=== PATIENT | female | born 1965 | race Caucasian/White ===

== ENCOUNTER → 2020-12-21 | Outpatient (CLI) | payer BC ==
[2020-12-21 12:00] LABS: GLUCOSE,CSF 54 mg/dL (50-80); TOTAL PROTEIN,CSF 43 mg/dL (20-45)
[2020-12-21 12:22] LABS: WBC (AUTOMATED 1 10^3 (0-5); WBC (AUTOMATED 2 10^3 (0-5)
[2020-12-23 15:10] LABS: CSF IGG INDEX 0.7 (0.0-0.7); IMMUNOGLOBULIN G, QN, SERUM 740 mg/dL (586-1602)
[2020-12-23 17:12] LABS: MYELIN BASIC PROTEIN, CSF 4.6 ng/mL (0.0-3.7)
== END ==
LOC: RAD 09:48
PROVIDERS: Psychiatry & Neurology Neurology
DX: G35 Multiple sclerosis (principal)
CPT/HCPCS: 82040; 82784; 82945; 83873; 83916; 84157; 87015; 87070; 87116; 87205; 87210; 89051